=== PATIENT | male | born 1945 | race Caucasian/White ===

== ENCOUNTER 2019-01-13 11:51 | Day surgery (SDC) | payer MEDICARE ==
[~2019-01-13] VITALS: Ht 175.3 cm; Wt 99.8 kg
[~2019-01-13 11:51] MED LIST: LISINOPRIL10 MG PO
[2019-01-13] MEDS ORDERED: AMLODIPINE BESY10 MG PO (12:10)
[2019-01-13] MEDS ORDERED: CHILDREN'S ASPI81 M1 PO (12:17)
--- NOTE | 2019-01-13 13:59 | NUR ---
01/13/19 1359 Cathy Sebastian 1352- PT ARRIVES TO PACU ALERT AND ORIENTED. RESP EVEN AND UNLABORED. OXYGEN SAT MID TO HIGH 90'S ON 3L VIA NC. 1356- OXYGEN TITRATED OFF.
--- NOTE | 2019-01-14 19:06 | OR ---
[facility] [address], [place] [address] Signed DATE OF OPERATION: 01/13/2019 SURGEON: Den Fonseca MD PREOPERATIVE DIAGNOSIS: History of hyperplastic polyp at 18 cm, 2013. POSTOPERATIVE DIAGNOSES: 1. Diverticulosis of colon. 2. Small polyp at rectosigmoid (excised). PROCEDURE PERFORMED: Total colonoscopy to cecum with cold morcellation polypectomy x1. ANESTHESIA: Intravenous sedation, fentanyl 100 mcg, Versed 5 mg. INDICATION: This 74-year-old white man is a patient of Dr. Duran and known to me from the past having undergone colonoscopy in 2013 showing a hyperplastic polyp at 18 cm. He is also noted to have extensive diverticulosis of the sigmoid at that time. He is currently symptom free having no bleeding, diarrhea, or constipation, has no family history of colon cancer. He is admitted at this time to undergo colonoscopy. He understands the risks of bleeding, infection, and perforation. FINDINGS: The prep was excellent. Complete colonoscopy was undertaken to the cecum without question. He had scattered diverticula throughout the colon including the sigmoid. There was a very small polyp at the rectosigmoid, which had adenomatous changes based on narrow band imaging. This area was biopsied and completely excised the area in question. There were no other findings of concern. DESCRIPTION OF PROCEDURE: The patient was brought to the endoscopy suite, placed in lateral decubitus position, given intravenous sedation to the point of slurred speech and nystagmus with full cardiopulmonary monitoring. After satisfactory sedation, digital rectal examination was undertaken, which was normal. An Olympus video colonoscope was passed in the rectum and manipulated throughout the colon noting diverticula of the sigmoid and left colon. Scope was ultimately advanced to the cecum. With various maneuvers, the scope was fully able to intubate the cecum, identifying well all the structures including the Electronically Signed By: DEN FONSECA MD 01/14/19 1906 PATIENT NAME: NGA REYNOLDS OPERATIVE REPORT DATE OF : 47 REPORT #: [id number] PHYSICIAN: DEN FONSECA MD PCP: KAMARI DURAN DO REPORT IS CONFIDENTIAL AND NOT TO BE RELEASED WITHOUT AUTHORIZATION [facility] [address], [place] [address] Signed appendiceal orifice and the ileocecal valve. The scope was withdrawn from that point. Careful inspection upon withdrawal of scope showed no sign of abnormality until the rectosigmoid, where small area on the mucosal fold was suggestive of polyp. Narrow band imaging was used affirming the high probability of very small polyp, this was excised with cold morcellation technique. Retroflexed view was then undertaken showing no sign of other abnormality. Scope was straightened, withdrawn, removed, and the patient was taken to recovery room in good condition. CONCLUDING DIAGNOSES: 1. Diverticulosis. 2. Very small polyp of the rectosigmoid junction. PLAN: We will recommend repeat colonoscopy in 5 years if polyp was found to be adenomatous. Expectant management if not an adenomatous polyp otherwise. He will return to the ongoing care of Dr. Duran. MD REYNALDO Pradhan/SANDRAL /[id number] cc: Kamari Duran DO Copies: KAMARI DURAN DO ~ Electronically Signed By: DEN FONSECA MD 01/14/19 1906 PATIENT NAME: NGA REYNOLDS OPERATIVE REPORT DATE OF : 47 REPORT #: [id number] PHYSICIAN: DEN FONSECA MD PCP: KAMARI DURAN DO REPORT IS CONFIDENTIAL AND NOT TO BE RELEASED WITHOUT AUTHORIZATION
== END 2019-01-13 14:30 | disposition home or self-care (01) ==
LOC: OPS 11:51 → DS 11:51 → OPS 13:00 → DS 13:00 → OPS 14:30
PROVIDERS: Surgery
PROC: 0DBN8ZZ Excision of Sigmoid Colon, Via Natural or Artificial Opening Endoscopic (ICD-10-PCS; principal; 2019-01-13 13:00)
DX: Z12.11 Encounter for screening for malignant neoplasm of colon (principal); D12.7 Benign neoplasm of rectosigmoid junction; K57.30 Diverticulosis of large intestine without perforation or abscess without bleeding; I10 Essential (primary) hypertension; E66.9 Obesity, unspecified; Z68.33 Body mass index [BMI] 33.0-33.9, adult; Z86.010 Personal history of colon polyps
CPT/HCPCS: 99153; G0500; J2250; J2704; J3010; J7120